=== PATIENT | male | born 1940 | race African-American/Black ===

== ENCOUNTER 2018-02-03 19:01 | Inpatient (IN) | payer MEDICARE, MEDICAID ==
[2018-02-03] MEDS ORDERED: methylPREDNISolone Sod Succ/PF 125 MG/2 ML VIAL ONE (20:53)
[2018-02-03 21:50] LABS: Troponin I 0.028 ng/mL (< 0.028)
[2018-02-03 22:28] VITALS: BMI 46.7
[2018-02-03] MEDS ORDERED: Calcium Carbonate 500 MG ChewTAB PO PRN (22:32)
[2018-02-03] MEDS ORDERED: cefTRIAXone\\ROCEPHIN 2 GM in Sodium Chloride 0.9% 100 ML IVPB SCH (22:32)
[2018-02-03] MEDS ORDERED: Meclizine HCl 12.5 MG TAB PO PRN (22:32)
--- NOTE | 2018-02-03 22:37 | PDOC.FPRHP ---
- History of Present Illness Chief Complaint: SOB History of Present Illness: 77 yo M w/hx of COPD presents via transfer from [facility] ER for concern of PNA. The patient complains of 2-3 days of worsening SOB and exertional dsypnea with associated dry cough. He states that he is normally on O2 at 2L at home and is able to get around fairly well, however beginning 2 days ago he has been unable to walk around the house without taking a break. He denies fever, chills , n/v, or chest pain. He admits to R LE edema, however this is apparently chronic in nature since trauma to that extremity years ago. ED Course: At the [facility] ER, it was noted that he had a significant change in his supplemental O2 demand and required 4L to maintain his O2 sat. A CXR found a R PNA. Pt was given 4.5 mg of Zosyn and transferred to this facility. Once here pt was given 1g Vanc and a neb treatment. - Allergies/Adverse Reactions Allergies Allergy/AdvReac Type Severity Reaction Status Date / Time No Known Drug Allergies Allergy Verified 08/17/17 11:07 - Home Medications Medication Instructions Recorded Confirmed Type Aspirin [Ecotrin Low Strength] 81 mg PO DAILY 05/15/14 08/17/17 History Atorvastatin Calcium [Lipitor] 20 mg PO DAILY 05/15/14 08/17/17 History Digoxin [Lanoxin] 25 mcg PO DAILY 05/15/14 08/17/17 History Ipratropium/Albuterol Sulfate 3 ml NEB QID PRN 05/15/14 08/17/17 History [Duoneb 0.5 mg-3 mg/3 ml Soln] Levothyroxine Sodium 25 mcg PO DAILY 05/15/14 08/17/17 History Arformoterol [Brovana] 15 mcg NEB BID 11/07/14 08/17/17 History Budesonide [Pulmicort Neb Solution] 0.5 mg NEB BID 11/07/14 08/17/17 History Sertraline HCl 50 mg PO BID 11/07/14 08/17/17 History Amitriptyline HCl [Elavil] 100 mg PO HS 08/26/16 08/17/17 History Bisacodyl [Dulcolax] 10 mg PO QAM 08/26/16 08/17/17 History Meclizine HCl [Antivert] 12.5 mg PO Q6HR PRN 08/26/16 08/17/17 History Meloxicam [Mobic] 15 mg PO DAILY 08/26/16 08/17/17 History Psyllium Husk/Aspartame [Metamucil 1 packet PO QAM 08/26/16 08/17/17 History Fiber Singles Packet] ALPRAZolam [ALPRAZolam] 0.5 mg PO TID 08/17/17 08/17/17 History Allopurinol [Allopurinol] 300 mg PO DAILY 08/17/17 08/17/17 History Atorvastatin Calcium 20 mg PO DAILY 08/17/17 08/17/17 History Valsartan [Valsartan] 02/03/18 02/03/18 History Comments: Unclear if patient is taking Digoxin - History PMHx: COPD Pulmonary HTN 2/2 CLARITA dCHF Pickwickian syndrome Chronic anxiety PSHx: FHx: Social: Former "heavy drinker." No etoh for 15 years No tobacco or recreational drug use - Review of Systems General: denies: fever/chills, weight/appetite/sleep changes, night sweats Eyes: denies: vision changes ENT: denies: nasal congestion, rhinorrhea Respiratory: reports: cough (dry), shortness of breath, exercise intolerance. denies: congestion Cardiovascular: reports: edema (chronic R LE). denies: chest pain, palpitation , paroxysmal nocturnal dyspnea, orthopnea Gastrointestinal: denies: nausea, vomiting, abdominal pain Genitourinary: denies: incontinence, dysuria Skin: denies: rashes, lesions Musculoskeletal: denies: pain, tenderness, stiffness Neurological: denies: numbness, syncope, weakness Psychological: denies: anxiety, depression - Vital signs BP: 145/89 HR: 87 RR: 21 Tmax: 97.6 Pox: 96% on 3L Wt: 151 kg - Physical Exam Constitutional: NAD, awake, alert and oriented HEENT: normocephalic and atraumatic, PERRLA, EOMI Neck: supple, FROM Chest: no-tender to palpation, no lesions Heart: RRR, normal S1/S2, no murmurs/rubs/gallops, other (R LE has 1+ pitting edema to knee) Lungs: good air movement, no rales/rhonchi, other (Wheezing throughout) Abdomen: soft, non-tender, bowel sounds present Musculoskeletal: normal structure, normal tone Neurological: no focal deficit, CN II-XII intact Skin: no rash/lesions, good turgor Heme/Lymphatic: no unusual bruising or bleeding Psychiatric: normal mood and affect FMR H&P: Results - Labs Lab results: Laboratory Tests 02/03/18 02/03/18 02/03/18 16:10 16:10 16:10 WBC 6.6 Hgb 13.5 L Hct 45.7 MCV 78.3 L Plt Count 147 Neutrophils % 64.0 Sodium 141 Potassium 4.3 Chloride 103 Carbon Dioxide 29 Anion Gap 13 BUN 13 Creatinine 0.91 Estimated GFR (MDRD) Greater than 90 Glucose 105 Lactic Acid Calcium 9.2 Total Bilirubin 0.5 AST 19 ALT 16 Alkaline Phosphatase 72 CK-MB (CK-2) 2.7 Troponin I 0.017 B-Natriuretic Peptide Serum Total Protein 7.3 Albumin 3.6 02/03/18 02/03/18 02/03/18 16:10 18:10 21:15 WBC Hgb Hct MCV Plt Count Neutrophils % Sodium Potassium Chloride Carbon Dioxide Anion Gap BUN Creatinine Estimated GFR (MDRD) Glucose Lactic Acid 0.7 Calcium Total Bilirubin AST ALT Alkaline Phosphatase CK-MB (CK-2) Troponin I 0.028 B-Natriuretic Peptide 271.0 H Serum Total Protein Albumin - EKG Interpretation EKG: NSR, no t wave changes, no st changes, no axis deviation - Radiology Interpretation Chest x-ray Status: report reviewed by me (1. Cardiomegaly. 2. Right hilar fullness. 3. Right perihilar and left lower lobe infiltrates. Better interrogation with CT is recommended.) FMR H&P: A/P - Problem List (1) Acute respiratory failure with hypoxia Current Visit: Yes Status: Acute Priority: High Code(s): J96.01 - ACUTE RESPIRATORY FAILURE WITH HYPOXIA (2) Community acquired pneumonia Current Visit: Yes Status: Acute Priority: High Code(s): J18.9 - PNEUMONIA , UNSPECIFIED ORGANISM (3) COPD exacerbation Current Visit: Yes Status: Acute Priority: High Code(s): J44.1 - CHRONIC OBSTRUCTIVE PULMONARY DISEASE W (ACUTE) EXACERBATION (4) Diastolic CHF Current Visit: Yes Status: Chronic Priority: Medium Code(s): I50.30 - UNSPECIFIED DIASTOLIC (CONGESTIVE) HEART FAILURE (5) CLARITA (obstructive sleep apnea) Current Visit: Yes Status: Chronic Priority: Medium Code(s): G47.33 - OBSTRUCTIVE SLEEP APNEA (ADULT) (PEDIATRIC) (6) HTN (hypertension) Current Visit: Yes Status: Chronic Priority: Medium Code(s): I10 - ESSENTIAL (PRIMARY) HYPERTENSION Qualifiers: Hypertension type: unspecified Qualified Code(s): I10 - Essential (primary ) hypertension (7) Obesity hypoventilation syndrome Current Visit: Yes Status: Chronic Priority: Low Code(s): E66.2 - MORBID ( SEVERE) OBESITY WITH ALVEOLAR HYPOVENTILATION (8) Anxiety Current Visit: Yes Status: Chronic Priority: Low Code(s): F41.9 - ANXIETY DISORDER, UNSPECIFIED (9) Microcytic anemia Current Visit: Yes Status: Chronic Priority: Low Code(s): D50.9 - IRON DEFICIENCY ANEMIA, UNSPECIFIED - Plan Acute hypoxic respiratory failure 2/2 CAP/COPD exacerbation -Admit to medicine -Continue Zosyn and start Levaquin. Dual coverage due to comorbidities. Will not continue Vanc -Continuous O2 monitoring, titrate O2 to maintain sat above 92% CAP -as above COPD exacerbation -Oral prednisone -Scheduled duoneb -restart home meds -abx as above -O2 sat monitoring as above dCHF -pt is currently not overloaded. Monitor fluid status CLARITA - order CPAP, pt is unsure of settings at home HTN -restart home meds Obesity hypoventilation syndrome -monitor sats as above. Pt does not currently require BiPAP. Will consider if he is unable to maintain sats on NC Anxiety -restart home meds Microcytic anemia -chronic. Likely anemia of chronic disease -iron studies pending Diet Heart healthy DVT PPx SCD and lovenox FMR H&P: Upper Level - Pertinent history 77yo AAM with PMHx of COPD, Pulmonary HTN, CLARITA and HFpEF-borderline (EF 40-45%) who was transferred here from [place] ED due to worsening shortness of breath, cough and wheezing for the past 2-3 days. Has been using his nebulizer more frequently. CXR at OSH showed RT perihilar and LLL infiltrates. Given Zosyn at OSH and Vanc here at [facility] ED. - Pertinent findings Gen: obese, NAD HEENT: NC in place, PERRLA Heart: distant heart sounds, S1 S2 Lungs: diffuse expiratory wheezing Abd: nt/nd/bs+ Ext: RLE 1+ pitting edema, LLE: pedal edema - Plan Date/Time: 02/03/18 2231 I, Jackeline Linda, have evaluated this patient and agree with findings/ plan as outlined by promotions intern resident. Pertinent changes/additions are listed here. 1. Acute hypoxic respiratory failure: 2/2 PNA and COPD exacerbation. Patient normally on 2L O2 via NC at home and requiring 3L currently. Cont O2 supplementation to keep O2 sats 88-92%. Treat underlying cause with abx. Patient given Zosyn at OSH and Vanc here at [facility] ED. Due to co-morbidities and recurrent COPD exacerbations, will continue Zosyn and add Levaquin. No RF for MRSA and thus will not continue Vanc. 2. CAP: See #1. 3. Acute on Chronic COPD exacerbation: Cont Levaquin, add PO steroids and duonebs. Cont home inhalers. 4. HPpEF-borderline (EF 40-45%): Patient with some LE swelling but states it is at his baseline. BNP slightly elevated at 271 though it has been higher during previous hospitalizations. Do not suspect CHF exacerbation at this time. Monitor closely for fluid overload. Cont home meds. Pt reports he has previously been on Lasix but not currently on it. Obtain records form Dr. Carr office in AM. 5. CLARITA/Pickwickian: cont home CPAP qHS with O2 supplementation. 6. Microcytic Anemia: obtain Fe studies. 7. HLD: cont home Lipitor. 8. Anxiety: cont home Amitriptyline and sertraline 9. Hypothyroidism: cont home synthroid 10. HTN: cont home valsartan 11. Diet: HH 12. PPx: lovenox 13. Code Status: Full Attending Addendum - Attending Addendum Date/Time: 02/04/18 0003 I personally evaluated the patient and discussed the management with Dr. Wade on 02/03/2018 @ 2200 I agree with the History, Examination, Assessment and Plan documented above with any addition or exceptions noted below- Briefly, this is a 77 year old BM with h/o COPD, CLARITA, combined systolic and diastolic CHF, and morbid obesity presents c/o SOB and cough x 2-3 days. Cough productive of yellow sputum. Subjective fever and chills. Decreased appetite. Has needed to use his nebulizer more frequently. PMH/PSH/Meds/All/SH reviewed and agree with resident 's documentation. Afebrile VSS Exam repeated by me and significant for Lungs- scattered wheezes in bases with some rhonchi Lab significant for WBC= 6.6 64%N. AGY=262 CXR- cardiomegaly; right perihilar infiltrate. A/P: 1) CAP- continue levaquin and zosyn. Continue O2 and wean as tolerated. 2) COPD- continue duonebs ; placed on steroids. 3) CLARITA- CPAP for night time.
[2018-02-04 00:56] LABS: Troponin I 0.041 ng/mL (< 0.028)
[2018-02-04] MEDS: Piperacillin/Tazobactam 4.5 GM in Sodium Chloride 0.9% 100 ML IVPB SCH ×4 (01:12→18:14)
[2018-02-04 04:24] LABS: #Lymphocytes 0.6 thou/uL (1.20-3.40); #Monocytes 0.1 thou/uL (0.11-0.59); #Neutrophils 5.8 thou/uL (1.40-6.50); %Basophils 0.1 % (0.0-1.0); %Eosinophils 0.2 % (0.0-10.0); %Lymphocytes 9.9 % (21.0-51.0); %Neutrophils 88.9 % (42.0-75.0); Hemoglobin 13.1 g/dL (14.0-18.0); Mean Corpuscular HGB CONC 30.5 g/dL (32.0-36.0); Mean Corpuscular Hemoglobin 25.2 pg (27.0-31.0); Mean Corpuscular Volume 82.5 fl (80.0-94.0); Platelet Count 146 thou/uL (130-400); RBC Distribution Width 15.2 % (11.5-14.5); White Blood Cell (WBC) Count 6.5 thou/uL (4.8-10.8)
[2018-02-04 04:39] LABS: Anion Gap 7 mmol/L (10-20); BUN (Urea Nitrogen) 13 mg/dL (8.4-25.7); Calc. Creatinine Clearance 134 mL/min (70-130); Carbon Dioxide 35 mmol/L (23-31); Chloride 101 mmol/L (98-107); Estimated GFR-MDRD Greater than 90; Glucose 121 mg/dL (83-110); Iron 58 ug/dL (65-175); Iron Binding Capacity, Total 243 mcg/dL (261-462); Sodium 138 mmol/L (136-145); Transferrin, Serum 194 mg/dL (163-344)
[2018-02-04 04:43] LABS: Troponin I 0.016 ng/mL (< 0.028)
[2018-02-04] MEDS: Levothyroxine Sodium 25 MCG TAB PO SCH (05:30)
[2018-02-04] MEDS: Budesonide 0.5 MG/2 ML NEB NEB SCH ×2 (07:04→18:48)
[2018-02-04] MEDS ORDERED: Furosemide 40 MG TAB PO SCH (07:30)
[2018-02-04] MEDS ORDERED: Enoxaparin Sodium 40 MG/0.4 ML SYRINGE SC SCH (09:00)
[2018-02-04] MEDS ORDERED: Digoxin 0.25 MG TAB PO SCH (09:00)
--- NOTE | 2018-02-04 09:03 | PDOC.FM ---
- Subjective Subjective: This morning patient is in good spirits. He states his breathing is much better than when he came in, he denies any issues with shortness of breath overnight. He states he has mild productive cough. He denies any pain at this time. He denies fevers, chills, sweats, nausea or vomiting. Patient asks appropriate questions about treatment of pneumonia, all questions are answered. - Objective Vital Signs & Weight: Vital Signs (12 hours) Temp Pulse Resp BP Pulse Ox 02/04/18 07:55 98.2 F 83 18 127/79 93 L 02/04/18 07:04 80 16 02/04/18 06:29 97.8 F 83 28 H 160/90 H 100 02/04/18 04:00 97 F L 81 22 H 138/85 97 02/04/18 02:20 94 L 02/04/18 00:35 86 20 94 L 02/03/18 22:32 86 22 H 94 L 02/03/18 22:15 97.8 F 83 26 H 94 L I&O: 02/03/18 02/04/18 02/05/18 06:59 06:59 06:59 Output Total 600 Balance -600 Result Diagrams: 02/04/18 03:57 02/04/18 03:57 <Flako Del Castillo - Last Filed: 02/04/18 09:01> - Objective Vital Signs & Weight: Vital Signs (12 hours) Temp Pulse Resp BP Pulse Ox 02/04/18 12:10 98.9 F 86 16 160/83 H 97 02/04/18 08:00 98.2 F 83 18 93 L 02/04/18 07:55 98.2 F 83 18 127/79 93 L 02/04/18 07:04 80 16 02/04/18 06:29 97.8 F 83 28 H 160/90 H 100 02/04/18 04:00 97 F L 81 22 H 138/85 97 02/04/18 02:20 94 L I&O: 02/03/18 02/04/18 02/05/18 06:59 06:59 06:59 Output Total 600 Balance -600 Result Diagrams: 02/04/18 03:57 02/04/18 03:57 <Juan Valera - Last Filed: 03/08/18 13:46> Phys Exam - Physical Examination Constitutional: NAD HEENT: PERRLA, moist MMs Neck: no nodes, full ROM expiratory wheezes throughout, mild consolidation RLL Cardiovascular: RRR, no significant murmur Gastrointestinal: soft, non-tender, no distention, positive bowel sounds Musculoskeletal: pulses present +1 Edema on LLE which is chronic per patient 2/2 mechanical injury Neurological: non-focal, moves all 4 limbs Lymphatic: no nodes Psychiatric: normal affect, A&O x 3 Skin: no rash, cap refill <2 seconds <Flako Del Castillo - Last Filed: 02/04/18 09:01> Dx/Plan (1) Acute respiratory failure with hypoxia Code(s): J96.01 - ACUTE RESPIRATORY FAILURE WITH HYPOXIA Status: Acute (2) COPD exacerbation Code(s): J44.1 - CHRONIC OBSTRUCTIVE PULMONARY DISEASE W (ACUTE) EXACERBATION Status: Acute (3) Community acquired pneumonia Code(s): J18.9 - PNEUMONIA, UNSPECIFIED ORGANISM Status: Acute (4) Diastolic CHF Code(s): I50.30 - UNSPECIFIED DIASTOLIC (CONGESTIVE) HEART FAILURE Status: Chronic (5) HTN (hypertension) Code(s): I10 - ESSENTIAL (PRIMARY) HYPERTENSION Status: Chronic QualifierTitle: Hypertension type: unspecified Qualified Code(s): I10 - Essential (primary) hypertension (6) CLARITA (obstructive sleep apnea) Code(s): G47.33 - OBSTRUCTIVE SLEEP APNEA (ADULT) (PEDIATRIC) Status: Chronic (7) Obesity hypoventilation syndrome Code(s): E66.2 - MORBID (SEVERE) OBESITY WITH ALVEOLAR HYPOVENTILATION Status : Chronic - Plan Plan: Acute hypoxic respiratory failure 2/2 CAP/COPD exacerbation - receieved 1 dose vanc in ED - on Zosyn, Levoquin - On Bipap overnight, weaned to CPAP in AM - normally on 2L O2 at home -prednisone, duonebs - Cultures at OSH, will await results dCHF - last EF 45-50% - does not appear fluid overloaded clinically, will monitor - home meds CLARITA - CPAP HTN -home meds Obesity hypoventilation syndrome -some Bipap overnight, weaned to CPAP in AM Anxiety -home meds Microcytic anemia -iron studies consistent with anemia of chronic disease #Diet - Heart healthy # DVT PPx SCD and lovenox # Code - full # Med rec - rec'd from last d/c - awaiting return call from PCP office Dispo: f/u on cultures from OSH, anticipate d/c tomorrow pending culture results and O2 requirements <Flako Del Castillo - Last Filed: 02/04/18 09:01> Attending Addendum - Attending Addendum Date/Time: 02/04/18 6965 I personally evaluated the patient and discussed the management with Dr. Del Castillo. I agree with the History, Examination, Assessment and Plan documented above with any addition or exceptions noted below. <Juan Valera - Last Filed: 02/04/18 13:46>
[2018-02-04] MEDS: Meloxicam 15 MG TAB PO SCH (09:13)
[2018-02-04] MEDS: Valsartan 80 MG TAB PO SCH (09:14)
[2018-02-04] MEDS: Bisacodyl 5 MG TAB PO SCH (09:18)
[2018-02-04] MEDS: predniSONE 20 MG TAB PO SCH (09:18)
[2018-02-04] MEDS: Metamucil PACK PO SCH (09:19)
[2018-02-04] MEDS: Aspirin 81 mg Enteric Coated Tablet PO SCH (09:19)
[2018-02-04] MEDS: Allopurinol 300 MG TAB PO SCH (09:20)
[2018-02-04] MEDS: ALPRAZolam 0.5 MG TAB PO SCH ×3 (09:20→21:16)
[2018-02-04 11:06] LABS: Digoxin Less than 0.15 ng/mL (0.8-2.0)
[2018-02-04] MEDS ORDERED: Amitriptyline HCl 100 MG TAB PO SCH (21:00)
[2018-02-04] MEDS ORDERED: Atorvastatin Calcium 20 MG TAB PO SCH (21:00)
[2018-02-05] MEDS: Piperacillin/Tazobactam 4.5 GM in Sodium Chloride 0.9% 100 ML IVPB SCH ×3 (00:16→13:26)
[2018-02-05] MEDS: Levothyroxine Sodium 25 MCG TAB PO SCH (05:28)
[2018-02-05] MEDS: Budesonide 0.5 MG/2 ML NEB NEB SCH (05:51)
[2018-02-05 06:47] LABS: Hemoglobin 12.2 g/dL (14.0-18.0); Mean Corpuscular HGB CONC 30.3 g/dL (32.0-36.0); Mean Corpuscular Hemoglobin 24.7 pg (27.0-31.0); Mean Corpuscular Volume 81.4 fl (80.0-94.0); Mean Platelet Volume 8.2 fL (7.4-10.4); Platelet Count 151 thou/uL (130-400); Red Blood Cell (RBC) Count 4.95 mill/uL (4.70-6.10); White Blood Cell (WBC) Count 9.1 thou/uL (4.8-10.8)
[2018-02-05 06:58] LABS: Anion Gap 8 mmol/L (10-20); BUN (Urea Nitrogen) 20 mg/dL (8.4-25.7); Calc. Creatinine Clearance 111 mL/min (70-130); Calcium 8.7 mg/dL (7.8-10.44); Carbon Dioxide 34 mmol/L (23-31); Chloride 100 mmol/L (98-107); Estimated GFR-MDRD 73; Glucose 97 mg/dL (83-110); Potassium 4.3 mmol/L (3.5-5.1); Sodium 138 mmol/L (136-145)
[2018-02-05] MEDS ORDERED: Furosemide 40 MG TAB PO SCH (07:30)
--- NOTE | 2018-02-05 08:26 | PDOC.FM ---
- Subjective Subjective: Patient states that his breathing is continuing to improve. He denies SOB this morning. Still having a mild cough but production is decreased. He states that using the CPAP overnight went ok and that he will use it every night once he goes home. - Objective Vital Signs & Weight: Vital Signs (12 hours) Pulse Resp Pulse Ox 02/05/18 05:51 83 18 95 02/05/18 00:35 87 18 94 L 02/04/18 22:00 83 20 95 I&O: 02/04/18 02/05/18 02/06/18 06:59 06:59 06:59 Intake Total 700 Output Total 600 600 Balance -600 100 Result Diagrams: 02/05/18 06:29 02/05/18 06:29 <Flako Del Castillo - Last Filed: 02/05/18 08:24> - Objective Vital Signs & Weight: Vital Signs (12 hours) Temp Pulse Resp BP Pulse Ox 02/05/18 08:45 98.0 F 63 20 125/79 98 02/05/18 05:51 83 18 95 02/05/18 00:35 87 18 94 L I&O: 02/04/18 02/05/18 02/06/18 06:59 06:59 06:59 Intake Total 700 Output Total 600 600 Balance -600 100 Result Diagrams: 02/05/18 06:29 02/05/18 06:29 <Juan Valera - Last Filed: 02/05/18 11:15> Phys Exam - Physical Examination Constitutional: NAD HEENT: PERRLA, moist MMs Neck: no nodes, full ROM Respiratory: no wheezing moderate wheezes bilaterally Cardiovascular: RRR, no significant murmur Gastrointestinal: soft, non-tender, no distention, positive bowel sounds Musculoskeletal: no edema, pulses present Neurological: non-focal, moves all 4 limbs Lymphatic: no nodes Psychiatric: normal affect, A&O x 3 Skin: no rash, cap refill <2 seconds <Flako Del Castillo - Last Filed: 02/05/18 08:24> Dx/Plan (1) Acute respiratory failure with hypoxia Code(s): J96.01 - ACUTE RESPIRATORY FAILURE WITH HYPOXIA Status: Acute (2) COPD exacerbation Code(s): J44.1 - CHRONIC OBSTRUCTIVE PULMONARY DISEASE W (ACUTE) EXACERBATION Status: Acute (3) Community acquired pneumonia Code(s): J18.9 - PNEUMONIA, UNSPECIFIED ORGANISM Status: Acute (4) Diastolic CHF Code(s): I50.30 - UNSPECIFIED DIASTOLIC (CONGESTIVE) HEART FAILURE Status: Chronic (5) HTN (hypertension) Code(s): I10 - ESSENTIAL (PRIMARY) HYPERTENSION Status: Chronic QualifierTitle: Hypertension type: unspecified Qualified Code(s): I10 - Essential (primary) hypertension (6) CLARITA (obstructive sleep apnea) Code(s): G47.33 - OBSTRUCTIVE SLEEP APNEA (ADULT) (PEDIATRIC) Status: Chronic (7) Obesity hypoventilation syndrome Code(s): E66.2 - MORBID (SEVERE) OBESITY WITH ALVEOLAR HYPOVENTILATION Status : Chronic - Plan Plan: Acute hypoxic respiratory failure 2/2 CAP/COPD exacerbation - receieved 1 dose vanc in ED - on Zosyn, Levoquin - On Bipap overnight, weaned to CPAP in AM - normally on 2L O2 at home -prednisone, duonebs - Cultures are negative at OSH dCHF - last EF 45-50% - does not appear fluid overloaded clinically, will monitor - home meds CLARITA - CPAP - Patient states he will use CPAP nightly once he goes home HTN -home meds Obesity hypoventilation syndrome -On RA at times yesterday afternoon, not hypoxic on CPAP overnight Anxiety -home meds Microcytic anemia -iron studies consistent with anemia of chronic disease #Diet - Heart healthy # DVT PPx SCD and lovenox # Code - full Dispo: D/c this AM <Flako Del Castillo - Last Filed: 02/05/18 08:24> Attending Addendum - Attending Addendum Date/Time: 02/05/18 1115 I personally evaluated the patient and discussed the management with Dr. Del Castillo. I agree with the History, Examination, Assessment and Plan documented above with any addition or exceptions noted below. <Juan Valera - Last Filed: 02/05/18 11:15>
[2018-02-05 08:46] VITALS: BP 125/79; TEMP 98
[2018-02-05] MEDS: Allopurinol 300 MG TAB PO SCH (08:50)
[2018-02-05] MEDS: predniSONE 20 MG TAB PO SCH (08:50)
[2018-02-05] MEDS: ALPRAZolam 0.5 MG TAB PO SCH (08:51)
[2018-02-05] MEDS: Aspirin 81 mg Enteric Coated Tablet PO SCH (08:51)
[2018-02-05] MEDS: Bisacodyl 5 MG TAB PO SCH (08:52)
[2018-02-05] MEDS: Valsartan 80 MG TAB PO SCH (08:58)
[2018-02-05] MEDS: Meloxicam 15 MG TAB PO SCH (08:58)
[2018-02-05] MEDS: Metamucil PACK PO SCH (08:59)
[2018-02-05] MEDS ORDERED: Enoxaparin Sodium 40 MG/0.4 ML SYRINGE SC SCH (09:00)
--- NOTE | 2018-02-05 22:10 | DIS-2 ---
DATE OF ADMISSION: 02/03/2018 DATE OF DISCHARGE: 02/05/2018 RESIDENT: Dr. Flako eDl Castillo. ADMITTING ATTENDING: Dr. Aure Le. DISCHARGE ATTENDING: Dr. Juan Valera. CONSULTATIONS: None. PROCEDURES: None. ADMISSION DIAGNOSES: Chronic obstructive pulmonary disease exacerbation/ pneumonia. PRIMARY DISCHARGE DIAGNOSES: Chronic obstructive pulmonary disease exacerbation /pneumonia. DISCHARGE MEDICATIONS: Atorvastatin 20 mg nightly, Lovenox 40 mg daily, Lasix 40 mg daily, levofloxacin 750 mg p.o. 4 days, prednisone 40 mg p.o. 4 days, Spiriva 1 puff daily, alprazolam 0.5 mg p.o. t.i.d., amitriptyline 100 mg p.o. nightly, aspirin 81 mg, levothyroxine 25 mcg daily, meclizine 12.5 mg p.o. p.r.n., meloxicam 15 mg p.o. daily, sertraline 50 mg p.o. b.i.d., valsartan 80 mg p.o. daily, Brovana 15 mcg b.i.d., digoxin 25 mcg daily. HISTORY OF PRESENT ILLNESS AND HOSPITAL COURSE: This 77-year-old male with a medical history of COPD, who presented via transfer from the [facility] ER for concerns of pneumonia and COPD exacerbation. The patient complained of 2-3 days of worsening shortness of breath and exertional dyspnea with associated dry cough. He stated he was normally on 2 liters home O2 at home, but beginning 2 days ago, he has been able to walk around the house without taking a break. He denies fevers, chills, nausea, vomiting, or chest pain. He does have left lower extremity edema, but this is a chronic in nature secondary to mechanical trauma many years ago. He received vancomycin and Zosyn in the ED. During the course of hospitalization, the patient remained on Zosyn and levofloxacin. He was on BiPAP overnight, the first night and maintained O2 sats in the low 90s during the day. He was able to get a nasal cannula and then room air and maintained sats in the mid 90s. During the next night, he was on CPAP throughout the night and maintained the sats in the low 90s. The patient's breathing improved over the course of the hospital stay. The patient' s blood cultures were negative to date at time of discharge. Patient is sent home with a 4-day course of levofloxacin as well as prednisone. Patient's formoterol was discontinued and Spiriva was started in its place. If funding is an issue, please feel free to go back to formoterol. Patient received inhaler education while in the hospital. DISPOSITION: Stable. DISCHARGE INSTRUCTIONS: 1. Location: Home. 2. Diet: Regular. 3. Activity: As tolerated. 4. Follow up with Dr. Perez within 1 week. MARS
[2018-02-06] MEDS ORDERED: Spiriva 18 MCG CAP (Box of 5 Caps) INH SCH (07:00)
== END 2018-02-05 15:31 | disposition home or self-care (01) | DRG 193 ==
LOC: ERS 19:01 → T4-B 20:53
PROVIDERS: ADMIT Family Medicine; ATTEND Family Medicine
DX: J18.9 Pneumonia, unspecified organism (principal); J96.01 Acute respiratory failure with hypoxia; I27.20 Pulmonary hypertension, unspecified; E66.2 Morbid (severe) obesity with alveolar hypoventilation; Z68.41 Body mass index [BMI] 40.0-44.9, adult; I11.0 Hypertensive heart disease with heart failure; I50.32 Chronic diastolic (congestive) heart failure; J44.0 Chronic obstructive pulmonary disease with (acute) lower respiratory infection; J44.1 Chronic obstructive pulmonary disease with (acute) exacerbation; Z99.81 Dependence on supplemental oxygen; E03.9 Hypothyroidism, unspecified; G47.33 Obstructive sleep apnea (adult) (pediatric); M10.9 Gout, unspecified; E78.5 Hyperlipidemia, unspecified; F41.9 Anxiety disorder, unspecified; D64.9 Anemia, unspecified
CPT/HCPCS: 36415; 80048; 80162; 82728; 83540; 83550; 84466; 84484; 85025; 85027; 94640; 94660; 94760; 96365; 96375; G8978-GP-CK; G8979-GP-CK; G8980-GP-CK; J1650; J1956; J2543; J2930; J3370; J7050; J7506; J7620; J7626

== ENCOUNTER 2018-04-06 10:20 | Outpatient (CLI) | payer MEDICARE, MEDICAID ==
--- NOTE | 2018-04-06 12:17 | RAD ---
TWO VIEWS CHEST: Comparison: 02-03-18 History: Dyspnea. FINDINGS: Two views of the chest shows an enlarged but stable cardiomediastinal silhouette. Atelectasis is seen in both lung bases. No consolidation or pleural effusion are evident. IMPRESSION: 1. Cardiomegaly. 2. Bibasilar atelectasis. POS: H
== END 2018-04-06 10:21 | disposition home or self-care (01) ==
LOC: RAD 10:20
PROVIDERS: ATTEND Internal Medicine Critical Care Medicine
DX: R06.00 Dyspnea, unspecified (principal); J98.11 Atelectasis; I51.7 Cardiomegaly
CPT/HCPCS: 71046

== ENCOUNTER 2019-02-08 08:10 | Day surgery (SDC) | payer MEDICARE, MEDICAID ==
[2019-02-07 10:45] VITALS: BMI 32.8
--- NOTE | 2019-02-08 00:50 | HP ---
HISTORY OF PRESENT ILLNESS: Tony Franks is a very pleasant 78-year-old male referred to me for evaluation of occult GI bleeding. The patient has no specific GI symptoms. Bowel movements are regular. No history of abdominal pain. No rectal bleeding. The patient had routine testing for fecal occult blood came back positive for occult blood. The patient is undergoing colonoscopy because of above reasons. ALLERGIES: NONE. SOCIAL HISTORY: The patient does not smoke or drink alcohol. MEDICAL ILLNESSES: 1. Morbid obesity. 2. COPD. 3. Sleep apnea. 4. Gout. 5. Osteoarthritis. 6. Hypertension. 7. Hypothyroidism. PHYSICAL EXAMINATION: GENERAL: He is obese. VITAL SIGNS: His pulse is 74, blood pressure is . Weight is 338 pounds. NECK: Supple. CARDIOVASCULAR SYSTEM: First and second heart sounds heard. LUNGS: Clear to auscultation. ABDOMEN: Soft. No organomegaly. No tenderness. No masses. ADMITTING DIAGNOSIS: An 78-year-old male with occult gastrointestinal bleeding, undergoing colonoscopy. Job ID: [id number]
--- NOTE | 2019-02-08 12:23 | OP ---
DATE OF PROCEDURE: 02/08/2019 OPERATIVE PROCEDURES: 1. Colonoscopy with polypectomy. 2. Colonoscopy with 10-Ethiopian BiCap probe of the polypectomy site. 3. Tattooing the lesion of the distal transverse colon close to splenic flexure. 4. Small sessile sigmoid polyp, status post snare cautery with good hemostasis. 5. Sessile polyp of rectum, status post snare cautery with good hemostasis. PREOPERATIVE DIAGNOSIS: Occult GI bleeding. DESCRIPTION OF PROCEDURE: The patient was placed on his left lateral position and was given sedation by Anesthesia Department. A rectal exam was done before the scope was advanced into the rectum. No lesions felt on rectal exam. A Pentax video colonoscope was introduced into the rectum and advanced all the way into the cecum. The prep was fair. The patient had thick dark green mucosa throughout the colon. Water was irrigated and washed out. In the ileocecal area, cecum, ascending colon, no pathology seen. In the hepatic flexure, no pathology seen. In the proximal and mid transverse colon, no pathology seen. In the distal transverse colon, I believe close to the splenic flexure, had a broad-based sessile polyp. The polyp was probably about 3 cm in size. The polyp was removed with polypectomy snare. Post polypectomy, at the margin of the polyp, there was mild oozing of blood noted. We cauterized the area with a 10-Ethiopian BiCap probe. Following this, the lesion was tattooed. The sigmoid colon showed sessile polyp. This was removed easily with snare cautery and the sessile polyp in the rectum removed with snare cautery. DISCHARGE PLANNING: This is an 78-year-old male, who had a positive fecal occult blood testing recently. He has no specific GI symptoms. He underwent colonoscopy with polypectomy, BiCap probe cautery of site and also tattooing of the lesion in the distal transverse colon. DISCHARGE RECOMMENDATIONS: 1. The patient was advised to call me if he develops abdominal pain, hematochezia. 2. Come back to see me in 2 weeks. Depending upon the biopsy, I will decide when he needs an another colonoscopy. I believe most likely he may need a colonoscopy in one year because of large broad-based sessile polyp in the distal transverse colon. Job ID: [id number]
[2019-02-08] MEDS ORDERED: PROPOFOL 200 MG/20 ML VIAL ONE (13:33)
[2019-02-08] MEDS ORDERED: Lidocaine 1% PF 5 ML VIAL ONE (13:33)
== END 2019-02-08 11:15 | disposition home or self-care (01) ==
LOC: SDC 08:10
PROVIDERS: ATTEND Internal Medicine Gastroenterology
PROC: 0DBP8ZX Excision of Rectum, Via Natural or Artificial Opening Endoscopic, Diagnostic (ICD-10-PCS; principal; 2019-02-08)
PROC: 0DBL8ZX Excision of Transverse Colon, Via Natural or Artificial Opening Endoscopic, Diagnostic (ICD-10-PCS; 2019-02-08)
PROC: 0DBN8ZX Excision of Sigmoid Colon, Via Natural or Artificial Opening Endoscopic, Diagnostic (ICD-10-PCS; 2019-02-08)
PROC: 3E0H8GC Introduction of Other Therapeutic Substance into Lower GI, Via Natural or Artificial Opening Endoscopic (ICD-10-PCS; 2019-02-08)
DX: D12.3 Benign neoplasm of transverse colon (principal); D12.5 Benign neoplasm of sigmoid colon; D12.8 Benign neoplasm of rectum; I10 Essential (primary) hypertension; E03.9 Hypothyroidism, unspecified; J44.9 Chronic obstructive pulmonary disease, unspecified; G47.30 Sleep apnea, unspecified; M19.90 Unspecified osteoarthritis, unspecified site; E66.01 Morbid (severe) obesity due to excess calories; Z68.32 Body mass index [BMI] 32.0-32.9, adult; Z79.82 Long term (current) use of aspirin; Z79.899 Other long term (current) drug therapy
CPT/HCPCS: 88305; J2001; J2704